=== PATIENT | female | born 1980 | race Caucasian/White ===

== ENCOUNTER 2016-09-08 21:20 | Emergency (ER) | payer BC ==
[2016-09-09] MEDS ORDERED: PRENATAL TABLE1 EAC3 PO (17:27)
[2016-09-09] MEDS ORDERED: COLACE 100MG C100 MG PO (21:09)
[2016-09-09] MEDS ORDERED: IBUPROFEN600 MG PO (21:12)
[2016-09-09] MEDS ORDERED: NORCO 5-325 TA1 EACH PO (21:12)
== END 2016-09-08 23:57 | disposition home or self-care (01) ==
LOC: ER1 21:20
DX: O20.0 Threatened abortion (principal); Z3A.08 8 weeks gestation of pregnancy
CPT/HCPCS: 99283; J7120

== ENCOUNTER 2016-09-09 16:45 | Day surgery (SDC) | payer BC ==
[2016-09-09 17:27] LABS: HEMOGLOBIN 13.8 gm/dl (12.3-15.3); RED BLOOD COUNT 4.57 M/UL (4.00-5.10); WHITE BLOOD COUNT 11.2 K/UL (4.5-11.0)
[2016-09-09] MEDS ORDERED: PRENATAL TABLE1 EAC3 PO (17:27)
[2016-09-09] MEDS ORDERED: COLACE 100MG C100 MG PO (21:09)
[2016-09-09] MEDS ORDERED: IBUPROFEN600 MG PO (21:12)
[2016-09-09] MEDS ORDERED: NORCO 5-325 TA1 EACH PO (21:12)
== END 2016-09-09 22:40 | disposition home or self-care (01) ==
LOC: OR 16:45 → M/S 16:50 → OR 22:40 → M/S 22:40
PROVIDERS: Obstetrics & Gynecology
PROC: 10D17ZZ Extraction of Products of Conception, Retained, Via Natural or Artificial Opening (ICD-10-PCS; principal; 2016-09-09 13:30)
DX: O03.4 Incomplete spontaneous abortion without complication (principal); Z79.899 Other long term (current) drug therapy; Z98.818 Other dental procedure status
CPT/HCPCS: 36415; 81001; 85025; J1100; J1885; J2250; J2405; J2765; J2795; J3010; J7030; J7050; J7120